=== PATIENT | female | born 1970 | race Hispanic/Latino ===

== ENCOUNTER 2020-03-27 18:35 | Inpatient (IN) | payer OTHER ==
[~2020-03-27] VITALS: Ht 154.9 cm; Wt 51.6 kg
[2020-03-27 19:01] LABS: BASOPHILS % (AUTO) 0.5 % (0.0-5.0); EOSINOPHILS % (AUTO) 1.1 % (0.0-8.0); HEMATOCRIT 24.7 % (36-48); LYMPHOCYTES % (AUTO) 11.4 % (21.0-51.0); MEAN CORPUSCULAR HEMOGLOBIN 18.1 pg (27.0-33.0); MEAN CORPUSCULAR HGB CONC 27.1 g/dL (32.0-36.0); MEAN CORPUSCULAR VOLUME 66.6 fL (79-99); MONOCYTES % (AUTO) 8.7 % (3.0-13.0); NEUTROPHILS % (AUTO) 77.8 % (40.0-77.0); PLATELET COUNT (AUTO) 591 K/uL (130-400); RED BLOOD CELL COUNT(AUTO) 3.71 MIL/uL (4.00-5.50); RED CELL DISTRIBUTION WIDTH 21.6 % (11.0-15.5); WHITE BLOOD COUNT (AUTO) 12.6 K/uL (4.8-10.8)
[2020-03-27 19:28] LABS: ALBUMIN 3.5 g/dL (3.5-5.0); BILIRUBIN,TOTAL 0.5 mg/dL (0.2-1.0); TOTAL PROTEIN, SERUM 9.7 g/dL (6.0-8.3)
[2020-03-27 19:31] LABS: POTASSIUM 2.5 mmol/L (3.5-5.1)
[2020-03-27] MEDS ORDERED: IOHEXOL-350 50ML VIAL IV ONE (19:37)
[2020-03-27 19:40] LABS: INR 1.14 (0.85-1.15); PARTIAL THROMBOPLASTIN TIME 27.2 SEC (26.3-35.5); PROTHROMBIN TIME 12.2 SEC (9.6-11.6)
[2020-03-27] MEDS ORDERED: POTASSIUM BICARB/CIT AC 25 MEQ TABLET.EFF ONE (20:34)
[2020-03-27] MEDS ORDERED: ACETAMINOPHEN 325 MG TAB PO PRN (22:30)
[2020-03-27] MEDS: POTASSIUM CHLORIDE 10% ELIXIR 20 MEQ/15 ML UDCUP PO SCH (22:45)
[2020-03-27 23:42] VITALS: BP 133/79
[2020-03-28] MEDS ORDERED: DEXTROSE 5 %-0.45 % NACL 1,000 ML IV ONE (00:05)
[2020-03-28] MEDS ORDERED: SODIUM CHLORIDE 0.9% 500ML 500 ML IV ONE (00:05)
[2020-03-28] MEDS ORDERED: POTASSIUM CHLORIDE 10% ELIXIR 20 MEQ/15 ML UDCUP ONE (00:06)
[2020-03-28] MEDS ORDERED: POTASSIUM CHLORIDE 20MEQ/100ML 100 ML IV ONE (00:59)
[2020-03-28 03:42] VITALS: BP 149/80
[2020-03-28] MEDS ORDERED: ACETAMINOPHEN 325 MG TAB ONE (03:49)
[2020-03-28] MEDS ORDERED: ACETAMINOPHEN ELIXIR 160 MG/5ML UDCUP ONE (03:52)
--- NOTE | 2020-03-28 05:20 | NUR ---
BLOOD TRANSFUSION Completed transfusion for 1 unit of prbc for h/h of 6.7/24.7, no untoward transfusion reactions noted. Pt asymptomatic, vital signs stable, up ad mateusz, no signs of bleeding. Medicated with tylenol elixir for the rt neck pain which afforded relief. Pt given a total of 40 meq kcl elixir for the K+ of 2.5 and was started on d5 1/2 Ns with 20 meq kcl at 65 cc/hr.
[2020-03-28 05:23] LABS: HEMATOCRIT 29.2 % (36-48); MEAN CORPUSCULAR HEMOGLOBIN 19.9 pg (27.0-33.0); MEAN CORPUSCULAR HGB CONC 28.4 g/dL (32.0-36.0); MEAN CORPUSCULAR VOLUME 69.9 fL (79-99); NUCLEATED RED BLOOD CELLS 0.2 % (0.0-0.19); RED BLOOD CELL COUNT(AUTO) 4.18 MIL/uL (4.00-5.50); RED CELL DISTRIBUTION WIDTH 23.6 % (11.0-15.5)
[2020-03-28 06:00] LABS: CREATININE 0.8 mg/dL (0.5-1.5); MAGNESIUM 2.1 mg/dL (1.80-2.40); POTASSIUM 3.2 mmol/L (3.5-5.1); THYROID STIMULATING HORMONE 0.43 uIU/mL (0.36-3.74)
[2020-03-28] MEDS: DEXTROSE IV SCH ×2 (07:00→22:42)
[2020-03-28] MEDS: NACL IV SCH ×2 (07:00→22:42)
[2020-03-28] MEDS: POTASSIUM CHLORIDE IV SCH ×2 (07:00→22:42)
[2020-03-28 08:00] VITALS: BP 130/74
[2020-03-28] MEDS: MULTIVITS W-MIN/FERROUS GLUC 237 ML BOTTLE PO SCH (09:00)
[2020-03-28] MEDS: POTASSIUM CHLORIDE 10% ELIXIR 20 MEQ/15 ML UDCUP PO SCH ×3 (09:48→20:32)
[2020-03-28 11:00] VITALS: BP 147/73
[2020-03-28 16:00] VITALS: BP 134/67
--- NOTE | 2020-03-28 18:04 | NUR ---
INITIAL: Met w pt this afternoon to discuss dcp. Pt mentions that she lives alone. Prior to admission was independent w ambulation and ADLs. She does not own any DME or receive services. 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 Pt mentions that she feels safe and comfortable to return home at ri. low income packet provided. CM to continue to follow. Addendum: 03/29/20 at 2004 by WILFRED FOLEY CM Amended: Links added.
--- NOTE | 2020-03-28 18:32 | NUR ---
DR LINDSEY NOTIFIED AND CONFIRMED OF HIS CONSULT FOR RM 320 MS. DOUGHERTY REGARDING HER NECK MASS. STATES HE WILL SEE HER ON MONDAY
[2020-03-28 19:54] VITALS: BP 158/63
[2020-03-28] MEDS: ACETAMINOPHEN 325 MG TAB PO PRN (20:31)
[2020-03-28 23:59] VITALS: BP 148/61
[2020-03-29 03:58] VITALS: BP 128/70
[2020-03-29 05:54] LABS: BASOPHILS % (AUTO) 0.4 % (0.0-5.0); EOSINOPHILS % (AUTO) 2.6 % (0.0-8.0); HEMATOCRIT 27.8 % (36-48); LYMPHOCYTES % (AUTO) 16.1 % (21.0-51.0); MEAN CORPUSCULAR HEMOGLOBIN 19.7 pg (27.0-33.0); MEAN CORPUSCULAR HGB CONC 27.7 g/dL (32.0-36.0); MEAN CORPUSCULAR VOLUME 71.1 fL (79-99); NEUTROPHILS % (AUTO) 70.5 % (40.0-77.0); PLATELET COUNT (AUTO) 475 K/uL (130-400); RED BLOOD CELL COUNT(AUTO) 3.91 MIL/uL (4.00-5.50); RED CELL DISTRIBUTION WIDTH 23.4 % (11.0-15.5); WHITE BLOOD COUNT (AUTO) 10.2 K/uL (4.8-10.8)
[2020-03-29 06:30] LABS: BILIRUBIN,TOTAL 0.5 mg/dL (0.2-1.0); CREATININE 0.7 mg/dL (0.5-1.5); POTASSIUM 3.1 mmol/L (3.5-5.1); TOTAL PROTEIN, SERUM 8.6 g/dL (6.0-8.3)
[2020-03-29 08:26] VITALS: BP 142/68
[2020-03-29] MEDS: MULTIVITS W-MIN/FERROUS GLUC 237 ML BOTTLE PO SCH (09:00)
[2020-03-29] MEDS: POTASSIUM CHLORIDE 10% ELIXIR 20 MEQ/15 ML UDCUP PO SCH ×3 (09:32→20:18)
[2020-03-29 11:32] VITALS: BP 137/54
[2020-03-29] MEDS: DEXTROSE IV SCH (14:33)
[2020-03-29] MEDS: NACL IV SCH (14:33)
[2020-03-29] MEDS: POTASSIUM CHLORIDE IV SCH (14:33)
[2020-03-29] MEDS ORDERED: PHARMACY COMMUNICATION MISC SCH ×2 (15:30→16:30)
[2020-03-29 16:19] VITALS: BP 139/61
[2020-03-29 20:00] VITALS: BP 152/80
[2020-03-29] MEDS: ACETAMINOPHEN 325 MG TAB PO PRN (20:19)
[2020-03-30] VITALS (7 sets, daily range): BP systolic 138–160; BP diastolic 37–85
[2020-03-30] MEDS: POTASSIUM CHLORIDE IV SCH ×2 (04:24→17:12)
[2020-03-30] MEDS: DEXTROSE IV SCH ×2 (04:24→17:12)
[2020-03-30] MEDS: NACL IV SCH ×2 (04:24→17:12)
[2020-03-30] MEDS ORDERED: POTASSIUM CHLORIDE 20MEQ/100ML 100 ML IV ONE (06:32)
[2020-03-30] MEDS ORDERED: LIDOCAINE HCL-MPF 1% 2ML VIAL ONE (06:33)
[2020-03-30] MEDS: POTASSIUM CHLORIDE 20MEQ/100ML 100 ML IV PRN (06:43)
[2020-03-30] MEDS: LIDOCAINE HCL-MPF 1% 2ML VIAL IV PRN (06:43)
[2020-03-30 08:08] LABS: CREATININE 0.8 mg/dL (0.5-1.5); POTASSIUM 3.6 mmol/L (3.5-5.1)
[2020-03-30] MEDS: MULTIVITS W-MIN/FERROUS GLUC 237 ML BOTTLE PO SCH (09:00)
[2020-03-30] MEDS: POTASSIUM CHLORIDE 10% ELIXIR 20 MEQ/15 ML UDCUP PO SCH ×3 (09:00→20:44)
[2020-03-30] MEDS ORDERED: PAMIDRONATE DISODIUM 90MG VIAL 90 MG in SODIUM CHLORIDE 0.9% 1000ML 1,000 ML IV SCH (09:30)
[2020-03-30 09:59] LABS: ALBUMIN 3.3 g/dL (3.5-5.0); BILIRUBIN,TOTAL 0.5 mg/dL (0.2-1.0); TOTAL PROTEIN, SERUM 9.7 g/dL (6.0-8.3)
[2020-03-30] MEDS: MORPHINE SULFATE 2 MG/ML 1ML SYG IVP PRN ×2 (11:13→20:46)
[2020-03-31 04:23] VITALS: BP 155/62
[2020-03-31] MEDS: MORPHINE SULFATE 2 MG/ML 1ML SYG IVP PRN ×3 (04:54→23:49)
[2020-03-31 04:59] LABS: BASOPHILS % (AUTO) 0.5 % (0.0-5.0); EOSINOPHILS % (AUTO) 2.2 % (0.0-8.0); HEMATOCRIT 32.6 % (36-48); LYMPHOCYTES % (AUTO) 12.2 % (21.0-51.0); MEAN CORPUSCULAR HEMOGLOBIN 19.8 pg (27.0-33.0); MEAN CORPUSCULAR HGB CONC 27.6 g/dL (32.0-36.0); MEAN CORPUSCULAR VOLUME 71.6 fL (79-99); MONOCYTES % (AUTO) 6.1 % (3.0-13.0); NEUTROPHILS % (AUTO) 78.7 % (40.0-77.0); PLATELET COUNT (AUTO) 551 K/uL (130-400); RED BLOOD CELL COUNT(AUTO) 4.55 MIL/uL (4.00-5.50); RED CELL DISTRIBUTION WIDTH 24.3 % (11.0-15.5)
[2020-03-31 05:24] LABS: ALBUMIN 3.2 g/dL (3.5-5.0); BILIRUBIN,TOTAL 0.5 mg/dL (0.2-1.0); CREATININE 0.7 mg/dL (0.5-1.5); TOTAL PROTEIN, SERUM 9.4 g/dL (6.0-8.3)
[2020-03-31 05:55] LABS: POTASSIUM 2.9 mmol/L (3.5-5.1)
[2020-03-31] MEDS: POTASSIUM CHLORIDE 20MEQ/100ML 100 ML IV PRN ×2 (06:44→23:56)
[2020-03-31] MEDS: LIDOCAINE HCL-MPF 1% 2ML VIAL IV PRN ×2 (06:44→23:55)
[2020-03-31 08:00] VITALS: BP 168/81
[2020-03-31] MEDS: MULTIVITS W-MIN/FERROUS GLUC 237 ML BOTTLE PO SCH (09:00)
[2020-03-31] MEDS: POTASSIUM CHLORIDE 10% ELIXIR 20 MEQ/15 ML UDCUP PO SCH ×3 (09:00→21:00)
--- NOTE | 2020-03-31 12:44 | NUR ---
PT BACK TO ROOM , PER REPORT. PEG PLACEMENT ON HOLD . PER GI STAFF .DR GAN SPOKE WITH PRIMARY REGARDING WHEN DR. TRACEY . WILL BE DOING THE BX/ PROCEDURE, TO BE DONE THEN . DUE TO DR. TRACEY ASSSTANCE.
--- NOTE | 2020-03-31 13:20 | NUR ---
DR. TRACEY AT THE BEDSIDE FOR ORAL ASSESSMENT ALSO EXPLAIN TO PT OF NEEDED BX IN OR. PROCEDURE FOR TOMMORROW. REVIEW PLAN OF CARE WITH ORDERS TO FOLLOW
--- NOTE | 2020-03-31 14:56 | NUR ---
RD NOTIFICATION - PPN RECOMMENDATIONS Notification for [facility]. Pt admitted with Neck Mass. NGT contraindicated. PEG placement pending Biopsy. Recommend Peripheral Nutrition, Clinimix E 4.25/5% @80mls/hr. pending PEG placement. Recommendations faxed to [facility]C ([phone]), RN notified. NUTRITION NOTE: Pt NPO >3 days, severe weight loss. Cachexia. Decreased serum potassium (2.9). RD to continue to monitor.
[2020-03-31] MEDS: DEXTROSE IV SCH ×2 (15:29→20:54)
[2020-03-31] MEDS: POTASSIUM CHLORIDE IV SCH ×2 (15:29→20:54)
[2020-03-31] MEDS: NACL IV SCH ×2 (15:29→20:54)
--- NOTE | 2020-03-31 15:42 | NUR ---
Per OR centrifuge separator operator Hunter, pt is scheduled for Laryngoscopy with biopsy of neck mass by Dr. Sy tomorrow at noon. Notified Dr. Krishnan of date and time as he can perform PEG placement simultaneously. Dr. Krishnan acknowledged.
[2020-03-31 16:00] VITALS: BP 135/73
[2020-03-31 20:52] VITALS: BP 142/90
[2020-03-31] MEDS: M.V.I. IV [ADULT] 10 ML in CLINIMIX E 4.25%-5% SOLUTION 2,000 ML IV SCH (21:08)
[2020-03-31 23:51] VITALS: BP 133/64
[2020-04-01] VITALS (28 sets, daily range): BP systolic 117–183; BP diastolic 53–95
[2020-04-01 04:23] LABS: BASOPHILS % (AUTO) 0.6 % (0.0-5.0); EOSINOPHILS % (AUTO) 2.2 % (0.0-8.0); HEMATOCRIT 28.5 % (36-48); LYMPHOCYTES % (AUTO) 10.4 % (21.0-51.0); MEAN CORPUSCULAR HGB CONC 28.1 g/dL (32.0-36.0); MEAN CORPUSCULAR VOLUME 71.3 fL (79-99); MONOCYTES % (AUTO) 7.4 % (3.0-13.0); NEUTROPHILS % (AUTO) 78.8 % (40.0-77.0); PLATELET COUNT (AUTO) 395 K/uL (130-400); RED CELL DISTRIBUTION WIDTH 23.9 % (11.0-15.5); WHITE BLOOD COUNT (AUTO) 7.2 K/uL (4.8-10.8)
[2020-04-01 04:59] LABS: ALBUMIN 2.8 g/dL (3.5-5.0); BILIRUBIN,TOTAL 0.4 mg/dL (0.2-1.0); CREATININE 0.7 mg/dL (0.5-1.5); POTASSIUM 3.4 mmol/L (3.5-5.1); TOTAL PROTEIN, SERUM 8.3 g/dL (6.0-8.3)
[2020-04-01] MEDS: NACL IV SCH (05:23)
[2020-04-01] MEDS: POTASSIUM CHLORIDE IV SCH (05:23)
[2020-04-01] MEDS: DEXTROSE IV SCH (05:23)
[2020-04-01] MEDS: POTASSIUM CHLORIDE 20MEQ/100ML 100 ML IV PRN (05:28)
[2020-04-01] MEDS: LIDOCAINE HCL-MPF 1% 2ML VIAL IV PRN (05:28)
[2020-04-01] MEDS: POTASSIUM CHLORIDE 10% ELIXIR 20 MEQ/15 ML UDCUP PO SCH ×3 (08:07→21:19)
[2020-04-01] MEDS: MULTIVITS W-MIN/FERROUS GLUC 237 ML BOTTLE PO SCH (09:00)
--- NOTE | 2020-04-01 11:57 | NUR ---
ASSESSMENT NOTE PT IS A/A X 3 , VS STABLE LEFT TO GI
[2020-04-01] MEDS ORDERED: LIDOCAINE 1%-EPI 1:100,000 20 ML VIAL IJ ONE (12:01)
[2020-04-01] MEDS ORDERED: SUCCINYLCHOLINE 200MG/10ML SYR ONE (12:07)
[2020-04-01] MEDS ORDERED: DEXAMETHASONE SOD PHOSPHATE 10MG/ML 1ML VIAL ONE ×2 (12:07→12:28)
[2020-04-01] MEDS ORDERED: LIDOCAINE PF 2% 5ML ABBOJECT ONE ×2 (12:07→12:09)
[2020-04-01] MEDS ORDERED: PROPOFOL 10 MG/ML 20ML VIAL IV ONE (12:08)
[2020-04-01] MEDS ORDERED: ROCURONIUM 10MG/1ML SYR 10 MG/ML ML ONE (12:08)
[2020-04-01] MEDS ORDERED: GLYCOPYRROLATE 1 MG/5 ML SYRINGE ONE (12:08)
[2020-04-01] MEDS ORDERED: NEOSTIGMINE 5MG/5ML SYR IV ONE (12:08)
[2020-04-01] MEDS ORDERED: FENTANYL CITRATE PF 50 MCG/1 ML 2ML VIAL ONE (12:08)
[2020-04-01] MEDS ORDERED: CEFAZOLIN SODIUM 1 GM VIAL ONE (12:25)
[2020-04-01] MEDS ORDERED: DEXAMETHASONE SOD PHOSPHATE 4 MG/ML 1ML VIAL ONE (12:29)
--- NOTE | 2020-04-01 14:50 | NUR ---
ASSESSMENT NOTE PT BACK FROM GI, A/A X 3 VS STABLE, PEG TUBE IN PLACE DRY AND INTACT.
--- NOTE | 2020-04-01 15:05 | NUR ---
ASSESSMENT NOTE [id number] PT IS A/AX 3 VS 97.2. B/P 145/80, HR 66, RES 17, PEG TUBE DRESSING IS DRY AND INTACT NO PAIN OR C/O AT THIS TIME.
--- NOTE | 2020-04-01 15:25 | NUR ---
ASSESSMENT NOTE 15MINX 3 PT SITTING UP A/A X 3 ON THE PHONE TALKING TO FAMILY. DRESSING DRY AND INTACT
--- NOTE | 2020-04-01 15:45 | NUR ---
ASSESSMENT NOTE 15 MIN X 4 PT A/A X4 CONTINUES TO REST WITH NO COMPLAINTS OF PAIN, DRESSING DRY AND INTACT
--- NOTE | 2020-04-01 16:15 | NUR ---
ASSESSMENT NOTE 30MIN X 1 PT CONTINUE TO REST NO COMPLICATION AND VS STABLE DRESSING DRY AND INTACT
--- NOTE | 2020-04-01 16:55 | NUR ---
ASSESSMENT [id number] X2 PT CONTINUE TO DO WELL AFTER PROCEDURE. PT IN BED ON HER CELL PHONE, VS STABLE WILL CONTINUE TO MONITOR
[2020-04-01] MEDS: MORPHINE SULFATE 2 MG/ML 1ML SYG IVP PRN (21:18)
[2020-04-01] MEDS ORDERED: COMPOUND IV REFRIGERATED 1 EACH IVSOLN MISC PRN (22:00)
[2020-04-02] MEDS: DEXTROSE IV SCH ×2 (02:23→13:42)
[2020-04-02] MEDS: ZOLPIDEM TARTRATE 5 MG TAB PO PRN (02:23)
[2020-04-02] MEDS: NACL IV SCH ×2 (02:23→13:42)
[2020-04-02] MEDS: POTASSIUM CHLORIDE IV SCH ×2 (02:23→13:42)
[2020-04-02] MEDS: M.V.I. IV [ADULT] 10 ML in CLINIMIX E 4.25%-5% SOLUTION 2,000 ML IV SCH ×2 (02:24→21:00)
[2020-04-02 03:57] VITALS: BP 116/71
[2020-04-02 04:46] LABS: BASOPHILS % (AUTO) 0.2 % (0.0-5.0); EOSINOPHILS % (AUTO) 0.1 % (0.0-8.0); HEMATOCRIT 27.8 % (36-48); LYMPHOCYTES % (AUTO) 10.8 % (21.0-51.0); MEAN CORPUSCULAR HEMOGLOBIN 19.9 pg (27.0-33.0); MEAN CORPUSCULAR HGB CONC 28.1 g/dL (32.0-36.0); MEAN CORPUSCULAR VOLUME 70.9 fL (79-99); MONOCYTES % (AUTO) 7.5 % (3.0-13.0); NEUTROPHILS % (AUTO) 80.9 % (40.0-77.0); PLATELET COUNT (AUTO) 384 K/uL (130-400); RED BLOOD CELL COUNT(AUTO) 3.92 MIL/uL (4.00-5.50); WHITE BLOOD COUNT (AUTO) 10.3 K/uL (4.8-10.8)
[2020-04-02 05:28] LABS: ALBUMIN 2.6 g/dL (3.5-5.0); BILIRUBIN,TOTAL 0.3 mg/dL (0.2-1.0); CREATININE 0.6 mg/dL (0.5-1.5); POTASSIUM 4.2 mmol/L (3.5-5.1); TOTAL PROTEIN, SERUM 7.8 g/dL (6.0-8.3)
--- NOTE | 2020-04-02 06:00 | NUR ---
PATIENT UPDATE Pt s/p peg tube feeding placement fr GI lab, pending tube feeding orders per Dietary. NPO status, meds adm per peg. Continues with the PPN at 80 cc/hr and D5 1/2NS with 40meq kcl at 75 cc/hr. Pt gets up to the restroom to void, mod assist in getting the pt out and in the bed. Bedside commode provided but still insisted on using the toilet, suctions self from time to time. Medicated once for pain with morphine 2 mg slow iv push which afforded relief.
--- NOTE | 2020-04-02 08:00 | NUR ---
ASSESSMENT NOTE PT IS A/A X 4 VS STABLE , PT. IS IN BED ON HER PHONE. PEG TUBE DRESSING IS DRY AND INTACT, PLACEMENT CHECK, NO RESIDUAL NOTED.
[2020-04-02] MEDS: POTASSIUM CHLORIDE 10% ELIXIR 20 MEQ/15 ML UDCUP PO SCH ×3 (08:22→21:16)
[2020-04-02] MEDS: MULTIVITAMINS/MINERALS/IRO TAB PO SCH (09:00)
[2020-04-02 09:54] VITALS: BP 129/70
[2020-04-02 11:38] VITALS: BP 109/70
--- NOTE | 2020-04-02 13:25 | NUR ---
RD FOLLOW UP - TUBE FEEDING RECOMMENDATION Pt s/p PEG placement. Recommend initiate continuous tube feeding, Jevity 1.5 at 20mls/hr. Goal rate 45mls/hr. Recommend flushes at 200mls Q6hrs Recommendations faxed to 3C ([phone]), RN to be notified. Clinimix E 5/15% @80mls currently in place. Recommend to wean from TPN as Tube feeding is tolerated. MVI, serm potassium supplementation in place. RD to continue to monitor. Please notify as additional nutrition concerns arise. Thank you.
--- NOTE | 2020-04-02 13:48 | NUR ---
CM Note: DAD to follow up w/pt CM spoke to Emily w/[facility], informed of pt needs, pt lives alone, and now have a peg tube. Pt is a selfpay, HAC assisting. As per Emily will follow up with pt. CM to cont to follow up.
--- NOTE | 2020-04-02 15:35 | NUR ---
TUBE FEED 1.5 JEVITY, START @ 20 ML INCREASE 5 ML EVERY 5 HOURS GOAL IS 45 ML.HR
[2020-04-02] MEDS: ACETAMINOPHEN 325 MG TAB PO PRN ×2 (16:05→23:38)
[2020-04-02 16:45] VITALS: BP 131/73
[2020-04-02 20:02] VITALS: BP 116/57
[2020-04-02 23:40] VITALS: BP 111/52
[2020-04-03] MEDS: POTASSIUM CHLORIDE IV SCH (04:32)
[2020-04-03] MEDS: NACL IV SCH (04:32)
[2020-04-03] MEDS: DEXTROSE IV SCH (04:32)
[2020-04-03] MEDS: ACETAMINOPHEN 325 MG TAB PO PRN (04:33)
[2020-04-03 04:34] VITALS: BP 109/65
--- NOTE | 2020-04-03 06:34 | NUR ---
PATIENT UPDATE MEDICATED TWICE WITH TYLENOL GR X FOR PAIN ON THE PEG TUBE SITE. TUBE FEEDING WELL TOLERATED, NO RESIDUALS NOTED. PT WITH A GOOD BM THIS AM. PPN INFUSION COMPLETED, CONTINUES WITH THE D5 1/2NS WITH 40MEQ KCL AT 75 CC/HR. VITAL SIGNS STABLE.
[2020-04-03 08:00] VITALS: BP 131/53
[2020-04-03] MEDS: POTASSIUM CHLORIDE 10% ELIXIR 20 MEQ/15 ML UDCUP PO SCH (09:00)
[2020-04-03 11:00] VITALS: BP 137/65
[2020-04-03] MEDS: MULTIVITAMINS/MINERALS/IRO TAB PO SCH (11:21)
--- NOTE | 2020-04-03 16:45 | NUR ---
CM Note: [facility] pending approval CM met with pt discussed feeding milk for home, pt agreeable for to send request to [facility], CALEB signed. Per pt, will have daughter w/pt on DC. Faxed clinicals to [facility], confirmation received. Pending bolus feeding recommendations to be faxed once dietitian gave final recommendations. Pt pending approval and delivery. Primary nurse to give some supplies for 3 days on DC. Primary nurse aware. CM to cont to follow up.
[2020-04-03 16:52] VITALS: BP 110/62
--- NOTE | 2020-04-03 17:00 | NUR ---
TUBE FEEDING PT IS ON JEVITY 1.5 AND HAS NOW MET GOAL AT 45 ML/HR. PT STATES FEEDING TOLERATING WELL. WILL CONTINUE TO MONITOR PT.
[2020-04-03 19:54] VITALS: BP 124/71
[2020-04-03] MEDS: ONDANSETRON HCL 4 MG/2 ML VIAL IV PRN (21:50)
[2020-04-03] MEDS: ZOLPIDEM TARTRATE 5 MG TAB PO PRN (21:50)
[2020-04-03] MEDS: MORPHINE SULFATE 2 MG/ML 1ML SYG IVP PRN (21:50)
[2020-04-03 23:45] VITALS: BP 122/72
[2020-04-04] MEDS: MORPHINE SULFATE 2 MG/ML 1ML SYG IVP PRN ×4 (02:07→20:09)
[2020-04-04 04:32] VITALS: BP 108/47
[2020-04-04 06:22] LABS: BASOPHILS % (AUTO) 0.9 % (0.0-5.0); EOSINOPHILS % (AUTO) 2.2 % (0.0-8.0); LYMPHOCYTES % (AUTO) 18.8 % (21.0-51.0); MEAN CORPUSCULAR HEMOGLOBIN 20.2 pg (27.0-33.0); MEAN CORPUSCULAR HGB CONC 28.5 g/dL (32.0-36.0); MONOCYTES % (AUTO) 9.1 % (3.0-13.0); NEUTROPHILS % (AUTO) 68.4 % (40.0-77.0); PLATELET COUNT (AUTO) 355 K/uL (130-400); RED BLOOD CELL COUNT(AUTO) 3.66 MIL/uL (4.00-5.50); RED CELL DISTRIBUTION WIDTH 25.2 % (11.0-15.5); WHITE BLOOD COUNT (AUTO) 8.9 K/uL (4.8-10.8)
[2020-04-04 06:47] LABS: CREATININE 0.6 mg/dL (0.5-1.5); POTASSIUM 4.2 mmol/L (3.5-5.1)
[2020-04-04 08:00] VITALS: BP 129/73
[2020-04-04] MEDS: DEXTROSE IV SCH ×3 (09:58→20:06)
[2020-04-04] MEDS: POTASSIUM CHLORIDE IV SCH ×3 (09:58→20:06)
[2020-04-04] MEDS: NACL IV SCH ×3 (09:58→20:06)
[2020-04-04] MEDS: MULTIVITAMINS/MINERALS/IRO TAB PO SCH (09:58)
[2020-04-04 12:00] VITALS: BP 130/78
[2020-04-04 16:00] VITALS: BP 130/72
[2020-04-04 19:27] VITALS: BP 143/56
[2020-04-04] MEDS: ACETAMINOPHEN 325 MG TAB PO PRN (20:08)
[2020-04-04] MEDS ORDERED: LIDOCAINE HCL 2% VISCOUS 15 ML UDCUP PO PRN (22:45)
--- NOTE | 2020-04-04 23:11 | NUR ---
received report from am nurse, assumed care, head to toe assessment done, timed medication given see emar, pain medication given see emar, came and seen pt, ordered viscous lidocaine swish and spit for pain prn, pre and post pain assessment done, 24 cc done, pt showered, teached how to administer medication and bolus feeding via peg tube, return demonstration done, pt verbalized understanding and facilitated feeding and medication administration, safety maintained.
[2020-04-04 23:20] VITALS: BP 110/62
[2020-04-05] MEDS: ONDANSETRON HCL 4 MG/2 ML VIAL IV PRN (00:28)
[2020-04-05] MEDS: MORPHINE SULFATE 2 MG/ML 1ML SYG IVP PRN ×5 (00:29→22:26)
[2020-04-05 04:00] VITALS: BP 106/54
[2020-04-05 06:50] LABS: HEMATOCRIT 25.4 % (36-48); MEAN CORPUSCULAR HEMOGLOBIN 20.3 pg (27.0-33.0); MEAN CORPUSCULAR HGB CONC 28.7 g/dL (32.0-36.0); MEAN CORPUSCULAR VOLUME 70.8 fL (79-99); PLATELET COUNT (AUTO) 332 K/uL (130-400); RED BLOOD CELL COUNT(AUTO) 3.59 MIL/uL (4.00-5.50); RED CELL DISTRIBUTION WIDTH 25.3 % (11.0-15.5); WHITE BLOOD COUNT (AUTO) 7.2 K/uL (4.8-10.8)
[2020-04-05 07:12] LABS: CREATININE 0.6 mg/dL (0.5-1.5); MAGNESIUM 1.9 mg/dL (1.80-2.40); POTASSIUM 3.9 mmol/L (3.5-5.1)
[2020-04-05 08:00] VITALS: BP 112/63
[2020-04-05 08:43] LABS: BASOPHILS % (MANUAL) 3 % (0-2); EOSINOPHILS % (MANUAL) 4 % (1-6); LYMPHOCYTES % (MANUAL) 22 % (22-44); MAN.DIFF COMMENT-IMPRESSION MANUAL DIFFERENTIAL; MONOCYTES % (MANUAL) 3 % (2-9); SEGMENTED NEUTROPHILS % 68 % (40-70)
[2020-04-05 08:44] LABS: PLATELET MORPHOLOGY COMMENT ADEQUATE
[2020-04-05] MEDS: MULTIVITAMINS/MINERALS/IRO TAB PO SCH (10:11)
[2020-04-05] MEDS: MAG HYDROX/AL HYDROX/SIMETH 60 ML, LIDOCAINE HCL 2% VISCOUS 60 ML, DIPHENHYDRAMINE HCL ... PO PRN ×6 (10:12→17:50)
[2020-04-05 11:56] VITALS: BP 127/65
--- NOTE | 2020-04-05 14:30 | NUR ---
BOLUS FEEDING: TAUGHT PT TO SELF ADMINISTER BOLUS FEEDING VIA PEG. I DEMONSTRATED TO PT, PT WAS ASKED TO DEMONSTRATE SELF FEEDING BACK TO ME. SHE DID WELL BUT STILL NEEDS ASSISTANCE TO GET USED TO IT. PT TOLERATED BOLUS FEEDING WELL (1 CAN OF JEVITY 1.5). WILL REVIEW BOLUS FEEDING AGAIN WITH PT AND WILL GIVE REPORT TO PM NURSE TO CONTINUE TO TEACH/ASSIST PT. WILL CONTINUE TO MONITOR.
[2020-04-05 16:00] VITALS: BP 102/69
[2020-04-05] MEDS ORDERED: MAGNESIUM 2GM PREMIX 50ML 50 ML IV PRN (18:30)
[2020-04-05] MEDS: POTASSIUM CHLORIDE IV SCH (18:39)
[2020-04-05] MEDS: DEXTROSE IV SCH (18:39)
[2020-04-05] MEDS: NACL IV SCH (18:39)
[2020-04-05] MEDS: ZOLPIDEM TARTRATE 5 MG TAB PO PRN (19:56)
[2020-04-05 20:00] VITALS: BP 127/74
[2020-04-06] VITALS (7 sets, daily range): BP systolic 106–135; BP diastolic 56–72
[2020-04-06] MEDS: MAG HYDROX/AL HYDROX/SIMETH 60 ML, LIDOCAINE HCL 2% VISCOUS 60 ML, DIPHENHYDRAMINE HCL ... PO PRN ×6 (01:03→22:15)
[2020-04-06] MEDS: MORPHINE SULFATE 2 MG/ML 1ML SYG IVP PRN ×3 (02:27→10:46)
--- NOTE | 2020-04-06 03:58 | NUR ---
gave 237 ml of glucerna 1.5 bolus to patient at 21:00. i flushed the tube with 100 ml of water before and 100 ml of water after the glucerna. patient did not want another glucerna bolus at midnight. after midnight patient has been npo due to her procedure today for portacath placement. have been giving her morphine throughout the night. no further issues.
[2020-04-06 05:52] LABS: BASOPHILS % (AUTO) 0.7 % (0.0-5.0); EOSINOPHILS % (AUTO) 2.5 % (0.0-8.0); HEMATOCRIT 30.7 % (36-48); LYMPHOCYTES % (AUTO) 26.5 % (21.0-51.0); MEAN CORPUSCULAR VOLUME 71.4 fL (79-99); MONOCYTES % (AUTO) 9.8 % (3.0-13.0); NEUTROPHILS % (AUTO) 60.2 % (40.0-77.0); PLATELET COUNT (AUTO) 263 K/uL (130-400); RED CELL DISTRIBUTION WIDTH 25.8 % (11.0-15.5)
[2020-04-06 06:07] LABS: CREATININE 0.7 mg/dL (0.5-1.5); POTASSIUM 3.9 mmol/L (3.5-5.1)
[2020-04-06] MEDS: MULTIVITAMINS/MINERALS/IRO TAB PO SCH (09:00)
--- NOTE | 2020-04-06 10:27 | NUR ---
CALLED FOR PT UPDATE, NO ANSWER
[2020-04-06] MEDS: ONDANSETRON HCL 4 MG/2 ML VIAL IV PRN ×2 (10:45→16:50)
--- NOTE | 2020-04-06 11:00 | NUR ---
CM Note: [facility] approval CM spoke to Tova Cam, pt has approval for peg feeding formula, will make arrangements w/pt regarding delivery and [facility]erson $1.90 per carton + supplies. Primary nurse aware to give 3-4 feeding formula supplies temporarily until [facility] able to deliver own supplies. Primary nurse Vicente RN aware. CM to continue to follow up.
[2020-04-06] MEDS ORDERED: MIDAZOLAM HCL 1 MG/ML 2ML VIAL ONE (14:23)
[2020-04-06] MEDS ORDERED: LIDOCAINE HCL 1% MDV 50ML VIAL ONE (14:24)
[2020-04-06] MEDS ORDERED: FENTANYL CITRATE PF 50 MCG/1 ML 2ML VIAL ONE (14:24)
--- NOTE | 2020-04-06 14:29 | NUR ---
PT TAKEN TO SUPERVISOR PHOSPHOR[employer] PROCESSING BY BED IN GOOD CONDITION FOR PORTACATH PLACEMENT
[2020-04-06] MEDS ORDERED: OCTYL 2-CYANOACRYLATE 1 EACH TP ONE (14:53)
[2020-04-06] MEDS ORDERED: MORPHINE SULFATE 2 MG/ML 1ML SYG ONE ×2 (16:44→21:14)
--- NOTE | 2020-04-06 21:16 | NUR ---
PAIN SHIFT ASSESSMENT DONE, PLEASE REFER TO CHART. PT COMPLAINTS OF GENERALIZED PAINS. MEDICATED WITH MORPHINE IV. KEPT COMFORTABLE IN BED WITH HOB ELEVATED. WILL RE-ASSESS PT. Addendum: 04/06/20 at 2338 by MARCELO LINDER RN RN Amended: Links added.
[2020-04-06] MEDS: ZOLPIDEM TARTRATE 5 MG TAB PO PRN (22:26)
[2020-04-07] MEDS: ACETAMINOPHEN 325 MG TAB PO PRN ×2 (01:07→20:20)
--- NOTE | 2020-04-07 02:05 | NUR ---
FEED PT STILL CLAIMS OF GENERALIZED PAINS. MEDICATED WITH MORPHINE IV. DUE FEEDING AND WATER FLUSHES ADMINISTERED. PT TOLERATED FEEDING WELL. WILL RE-ASSESS PT.
[2020-04-07] MEDS ORDERED: MORPHINE SULFATE 2 MG/ML 1ML SYG ONE ×4 (02:06→23:46)
[2020-04-07 03:48] VITALS: BP 96/50
--- NOTE | 2020-04-07 06:05 | NUR ---
MEDS DUE FEEDING AND WATER FLUSHES GIVEN, PT TOLERATED WELL. PT CLAIMS OF GENERALIZED PAINS, MEDICATED WITH MORPHINE IV. KEPT COMFORTABLE IN BED. WILL RE-ASSESS PT.
[2020-04-07 08:04] VITALS: BP 118/58
[2020-04-07] MEDS: MULTIVITAMINS/MINERALS/IRO TAB PO SCH (09:15)
[2020-04-07] MEDS: MORPHINE SULFATE 5 MG/ML VIAL IV PRN ×2 (09:17→12:43)
--- NOTE | 2020-04-07 11:00 | NUR ---
CM Note: suction machine CM met w/pt regarding per nurse request suction machine. Given pt estimate lowest [facility]erson w/[employer] $275-280 for canister, tubing and 2 yankauer. As per pt unable to pay privately. Verbalized will wait until her Medicaid is approved. Declined set up for suction machine at this time. Primary nurse Carolyn RN and Charge nurse Denise RN made aware. DC plan to home via private car once consulting MD's give clearance. Pt has approval for [facility] feeding formula to be delivered at pt's house. Nurse aware to give pt 3-4 days supplies to start w/on DC. CM to cont to follow up.
[2020-04-07 12:02] VITALS: BP 123/68
[2020-04-07] MEDS ORDERED: ACETAMINOPHEN ELIXIR 650 MG/20.3 ML UDCUP ONE (16:23)
[2020-04-07 16:26] VITALS: BP 114/67
[2020-04-07 19:50] VITALS: BP 131/71
[2020-04-07] MEDS: ZOLPIDEM TARTRATE 5 MG TAB PO PRN (22:25)
--- NOTE | 2020-04-07 22:30 | NUR ---
TUBEFEEDS/MEDS Medicated with Ambien as per request.Tubefeeding given via peg,instructions given how to feed self via peg.Hob up 45 degrees.Pt suctions mouth with a yankeur.Peg site with no redness,no swelling.Tolerated feeding well.Pt requires assistance due to generalized weakness.
[2020-04-07 23:06] VITALS: BP 102/56
--- NOTE | 2020-04-07 23:49 | NUR ---
PAIN Pt requesting Morphine for pain,medicated as per MD order for c/o of pain to her rt side of her neck.
--- NOTE | 2020-04-08 00:49 | NUR ---
MED EFFECT Pt appears sleeping.Arousable.
--- NOTE | 2020-04-08 02:00 | NUR ---
WARM PACK Pt asked for help to turne and reposition in bed,C/o of pain to her neck,Morphine not due yet.Warm pack applied.Deisi well.
[2020-04-08 03:31] VITALS: BP 132/49
[2020-04-08] MEDS: MORPHINE SULFATE 2 MG/ML 1ML SYG IVP PRN ×3 (05:58→14:39)
[2020-04-08 07:45] VITALS: BP 109/62
[2020-04-08] MEDS: MULTIVITAMINS/MINERALS/IRO TAB PO SCH (10:16)
[2020-04-08] MEDS: ONDANSETRON HCL 4 MG/2 ML VIAL IV PRN (10:36)
[2020-04-08 11:00] VITALS: BP 116/55
[2020-04-08] MEDS: ACETAMINOPHEN 325 MG TAB PO PRN ×2 (12:54→17:43)
[2020-04-08 16:00] VITALS: BP 117/60
--- NOTE | 2020-04-08 18:11 | NUR ---
DISCHARGE INSTRUCTIONS DISCHARGE INSTRUCTIONS GIVEN TO PATIENT, VERBALIZED UNDERSTANDING. FOLLOW UP APPOINTMENTS SET UP. IV DISCONTINUED. JHONATAN NICHOLS
== END 2020-04-08 18:00 | disposition home or self-care (01) | DRG 157 ==
LOC: EDH 18:35 → EDHIP 18:36 → 3CH 23:44
PROVIDERS: ADMIT Internal Medicine; ATTEND Internal Medicine
PROC: 0CBM8ZX Excision of Pharynx, Via Natural or Artificial Opening Endoscopic, Diagnostic (ICD-10-PCS; principal; 2020-03-27)
PROC: 30233N1 Transfusion of Nonautologous Red Blood Cells into Peripheral Vein, Percutaneous Approach (ICD-10-PCS; 2020-03-27)
PROC: 0DH63UZ Insertion of Feeding Device into Stomach, Percutaneous Approach (ICD-10-PCS; 2020-04-01)
PROC: 05HY33Z Insertion of Infusion Device into Upper Vein, Percutaneous Approach (ICD-10-PCS; 2020-04-06)
DX: K14.9 Disease of tongue, unspecified (principal); E43 Unspecified severe protein-calorie malnutrition; D64.9 Anemia, unspecified; E87.6 Hypokalemia; R79.89 Other specified abnormal findings of blood chemistry; R13.10 Dysphagia, unspecified; R47.02 Dysphasia; Z85.89 Personal history of malignant neoplasm of other organs and systems; Z93.1 Gastrostomy status; R59.0 Localized enlarged lymph nodes; Z68.21 Body mass index [BMI] 21.0-21.9, adult; Z20.828 Contact with and (suspected) exposure to other viral communicable diseases
CPT/HCPCS: 36415; 36430; 36561; 43246; 70491; 71046; 71250; 74176; 77001; 80048; 80053; 81025; 83735; 83970; 84132; 84443; 85025; 85027; 85610; 85730; 86850; 86900; 86901; 86923; 87426; 87880; 88305; 88342; G0378; J0330; J0690; J1100; J1644; J2001; J2250; J2270; J2405; J2430; J2704; J2710; J3010; J3480; J3490; J7030; J7040; J7042; P9016; Q9967

== ENCOUNTER 2020-04-21 15:04 | Emergency (ER) | payer OTHER ==
[2020-04-21] MEDS ORDERED: SODIUM CHLORIDE 0.9% 1000ML 1,000 ML IV ONE (16:39)
[2020-04-21 16:45] LABS: BASOPHILS % (AUTO) 0.5 % (0.0-5.0); EOSINOPHILS % (AUTO) 1.8 % (0.0-8.0); LYMPHOCYTES % (AUTO) 15.4 % (21.0-51.0); MEAN CORPUSCULAR HEMOGLOBIN 21.1 pg (27.0-33.0); MEAN CORPUSCULAR HGB CONC 29.2 g/dL (32.0-36.0); MEAN CORPUSCULAR VOLUME 72.2 fL (79-99); MONOCYTES % (AUTO) 10.2 % (3.0-13.0); NEUTROPHILS % (AUTO) 71.7 % (40.0-77.0); PLATELET COUNT (AUTO) 524 K/uL (130-400); RED CELL DISTRIBUTION WIDTH 25.7 % (11.0-15.5); WHITE BLOOD COUNT (AUTO) 7.8 K/uL (4.8-10.8)
[2020-04-21 16:55] LABS: CREATININE 0.5 mg/dL (0.5-1.5); POTASSIUM 3.4 mmol/L (3.5-5.1)
[2020-04-21 16:57] LABS: INR 1.04 (0.85-1.15); PARTIAL THROMBOPLASTIN TIME 27.9 SEC (26.3-35.5); PROTHROMBIN TIME 11.2 SEC (9.6-11.6)
[2020-04-21 17:00] LABS: ALBUMIN 2.3 g/dL (3.5-5.0); BILIRUBIN,TOTAL 0.3 mg/dL (0.2-1.0); TOTAL PROTEIN, SERUM 8.1 g/dL (6.0-8.3)
[2020-04-21] MEDS ORDERED: IOHEXOL-350 50ML VIAL IV ONE (17:30)
[2020-04-21 18:47] LABS: APPEARANCE,URINE Clear (CLEAR); BILIRUBIN,URINE Negative (NEGATIVE); COLOR,URINE Yellow (YELLOW); GLUCOSE, URINE (UA) Negative (NEGATIVE); KETONES,URINE Negative (NEGATIVE); LEUKOCYTE ESTERASE ,URINE Negative (NEGATIVE); NITRATE,URINE Negative (NEGATIVE); OCCULT BLOOD,URINE Negative (NEGATIVE); PROTEIN,URINE Negative (NEGATIVE)
[2020-04-21] MEDS ORDERED: KETOROLAC TROMETHAMINE 30MG/ML ONE (20:44)
== END 2020-04-21 23:56 | disposition short-term general hospital (02) ==
LOC: EDH 15:04
DX: C76.0 Malignant neoplasm of head, face and neck (principal); R22.1 Localized swelling, mass and lump, neck; Z98.890 Other specified postprocedural states
CPT/HCPCS: 36415; 70491; 71045; 80053; 81003; 84484; 85025; 85610; 85730; 93005; 96361; 96374; 99285; J1885; J7030; Q9967

== ENCOUNTER 2020-05-17 10:05 | Emergency (ER) | payer OTHER ==
[2020-05-17 10:55] LABS: BASOPHILS % (AUTO) 0.4 % (0.0-5.0); EOSINOPHILS % (AUTO) 0.4 % (0.0-8.0); HEMATOCRIT 31.1 % (36-48); LYMPHOCYTES % (AUTO) 8.3 % (21.0-51.0); MEAN CORPUSCULAR HEMOGLOBIN 25.4 pg (27.0-33.0); MEAN CORPUSCULAR HGB CONC 31.2 g/dL (32.0-36.0); MEAN CORPUSCULAR VOLUME 81.4 fL (79-99); MONOCYTES % (AUTO) 2.4 % (3.0-13.0); NEUTROPHILS % (AUTO) 88.1 % (40.0-77.0); PLATELET COUNT (AUTO) 198 K/uL (130-400); RED BLOOD CELL COUNT(AUTO) 3.82 MIL/uL (4.00-5.50); WHITE BLOOD COUNT (AUTO) 7.8 K/uL (4.8-10.8)
[2020-05-17 11:04] LABS: INR 0.92 (0.85-1.15)
[2020-05-17 11:09] LABS: ALBUMIN 2.7 g/dL (3.5-5.0); BILIRUBIN,TOTAL 0.5 mg/dL (0.2-1.0); CREATININE 0.6 mg/dL (0.5-1.5); POTASSIUM 3.1 mmol/L (3.5-5.1); TOTAL PROTEIN, SERUM 7.7 g/dL (6.0-8.3)
[2020-05-17 11:41] LABS: PARTIAL THROMBOPLASTIN TIME 27.5 SEC (26.3-35.5)
[2020-05-17] MEDS ORDERED: ONDANSETRON HCL 4 MG/2 ML VIAL ONE (12:42)
[2020-05-17] MEDS ORDERED: MORPHINE SULFATE 4 MG/1ML SYG ONE (12:43)
[2020-05-17] MEDS ORDERED: WATER FOR INJECTION STERILE PO SCH ×2 (13:00)
[2020-05-17] MEDS ORDERED: AMINOCAPROIC ACID PO SCH ×2 (13:00)
[2020-05-17] MEDS ORDERED: POTASSIUM BICARB/CIT AC 25 MEQ TABLET.EFF ONE (15:12)
== END 2020-05-17 15:36 | disposition home or self-care (01) ==
LOC: EDH 10:05
DX: C06.9 Malignant neoplasm of mouth, unspecified (principal); E87.6 Hypokalemia; Z98.890 Other specified postprocedural states
CPT/HCPCS: 36415; 80053; 85025; 85610; 85730; 96374; 96375; 99284; J2270; J2405; J3490